=== PATIENT | male | born 1970 | race Caucasian/White ===

== ENCOUNTER 2020-10-30 05:58 | Day surgery (SDC) | payer BC ==
[2020-10-29 12:10] VITALS: BMI 31.4
== END 2020-10-30 16:12 | disposition home or self-care (01) ==
LOC: SDC 05:58
PROVIDERS: ATTEND Specialist
PROC: 0WUF4JZ Supplement Abdominal Wall with Synthetic Substitute, Percutaneous Endoscopic Approach (ICD-10-PCS; principal; 2020-10-30)
DX: K42.9 Umbilical hernia without obstruction or gangrene (principal); M10.9 Gout, unspecified; J30.81 Allergic rhinitis due to animal (cat) (dog) hair and dander; Z79.899 Other long term (current) drug therapy
CPT/HCPCS: 80048; 85025; C1781; J0690; J0696; J1100; J1885; J1956; J2250; J2405; J2704; J3010; J3490; S0020